=== PATIENT | male | born 1960 | race Caucasian/White ===

== ENCOUNTER 2016-07-19 08:53 | Day surgery (SDC) | payer MEDICARE, OTHER ==
[~2016-07-19] VITALS: Ht 180.3 cm; Wt 59.1 kg
[2016-07-19] VITALS (8 sets, daily range): BP systolic 104–138; BP diastolic 65–86; PULSE 61–69; RESP 16–20; TEMP 97.7–98.6; O2SAT 94–99
[2016-07-19] MEDS ORDERED: FAMO20TA2 G-TUBE (09:29)
[2016-07-19] MEDS ORDERED: LORA-373 G-TUBE (09:29)
[2016-07-19] MEDS ORDERED: REGL10TA5 G-TUBE (09:29)
[2016-07-19] MEDS ORDERED: APLI5INJ2 SQ (09:29)
[2016-07-19] MEDS ORDERED: DOXY1CAP91 G-TUBE (09:29)
[2016-07-19] MEDS ORDERED: HUMALOG SQ (09:29)
[2016-07-19] MEDS ORDERED: fentaNYL CITRATE 250 MCG/5 ML AMP ONE (10:41)
[2016-07-19] MEDS ORDERED: MIDAZOLAM HCL 5 MG/5 ML VIAL ONE (10:41)
[2016-07-19] MEDS ORDERED: IOHEXOL 350 MG/ML 50 ML BTL (for RAD DIAG) J-TUBE ONE (11:47)
--- NOTE | 2016-07-19 12:47 | PD.RAD ---
Post Procedure Progress Note Pre Procedure Diagnosis: (1) Feeding tube obstruction Post Procedure Diagnosis: (1) Feeding tube obstruction Procedure Date: Jul 19, 2016 Supervising Radiologist: Chas Holguin JR Proceduralist/Assist: Antolin Simmons, RT(R), Siri Rico RT(R)(CV) Anesthesia: Conscious Sedation Plan of Activity Patient to Unit: ROPU Patient Condition: Good See PACS Report for procedural detail/treatment Feeding Tube Gastro/Jejunostomy Exchange Cymraes: 22 Findings: Original GJ tube coiled in stomach and kinked. Removed and replaced with new 22F GJ tube. Tip in proximal jejunum. Jr. Ezio,Chas Watts MD Jul 19, 2016 12:47
--- NOTE | 2016-07-19 16:32 | RADRPT ---
EXAM DATE/TIME: 07/19/2016 10:45 [facility] COMPARISON: No previous studies available for comparison. INDICATIONS : Patient presents with non functioning gastrojejunal tube in need of replacement for nutrition. MEDICAL HISTORY : PNA Dysphagia Aspiration DM ETOH Aphasia GERD Hemiplegia Smoker SURGICAL HISTORY : PEG tube Femur fx ENCOUNTER: Initial ACUITY: 2 days PAIN SCORE: 0/10 LOCATION: unresponsive. FLUORO TIME: 5.1 minutes IMAGE SERIES: 2 SEDATION TIME: 30 minutes CONTRAST: 30 cc Omnipaque (iohexol) 350 MEDICATION(S): 1.) 3 mg midazolam (Versed) IV 2.) 125 mcg Fentanyl (Sublimaze) IV DEVICE(S): 1.) 22 Stateless Transgastric tube PROCEDURE : 1. Fluoroscopically guided gastrojejunostomy tube exchange. 2. Conscious sedation with continuous EKG and oximetry monitoring. The risks, benefits and alternatives to the procedure were explained and verbal and written consent w as obtained. The site was prepped in sterile fashion. Full sterile technique was used, including ca p, mask, sterile gloves and gown and a large sterile sheet. Hand hygiene and 2% chlorhexidine and/or betadine/alcohol prep was utilized per protocol for cutaneous antisepsis. The skin and subcutaneous tissues were infiltrated with local anesthetic solution. Fluoroscopic evaluation shows existing GJ tube coiled within the stomach. The jejunal tube is kinked within the stomach. This GJ tube was removed. With fluoroscopic guidance a guidewire was passed throu gh the dermatotomy and a combination of a Berenstein catheter and Glidewire was utilized to access th e jejunum. A fresh tube was placed over the guidewire. The balloon was inflated with appropriate vol ume of saline. Injection of positive contrast demonstrates good position of the gastric and jejunal lumens of the tube. Conscious sedation was performed with the prescribed dosages and duration as above in the presence of an independent trained radiology nurse to assist in the monitoring of the patient. EKG and oximetry remained stable throughout the procedure. The patient tolerated the procedure well and there were n o complications. The patient was sent to post anesthesia recovery in stable condition. CONCLUSION: Uncomplicated gastrojejunostomy tube exchange as above. Chas Holguin Jr., MD on July 19, 2016 at 16:28 Board Certified Radiologist. This report was verified electronically.
== END 2016-07-19 13:35 | disposition home or self-care (01) ==
LOC: HROP 08:53 → HRIP 08:56 → HROP 13:35
PROVIDERS: ATTEND Family Medicine
DX: K94.23 Gastrostomy malfunction (principal); K21.9 Gastro-esophageal reflux disease without esophagitis; E11.9 Type 2 diabetes mellitus without complications
CPT/HCPCS: 49452; 99152; 99153; C1769; C1874; C1887; C1894; J2250; J3010; Q9967

== ENCOUNTER 2016-09-04 10:13 | Day surgery (SDC) | payer MEDICARE, OTHER ==
[~2016-09-04] VITALS: Ht 180.3 cm; Wt 72.7 kg
[~2016-09-04 10:13] MED LIST: APLI5INJ2 SQ; DOXY1CAP91 G-TUBE; FAMO20TA2 G-TUBE; HUMALOG SQ; LORA-373 G-TUBE; REGL10TA5 G-TUBE
[2016-09-04 10:15] VITALS: BP 154/93; PULSE 67; RESP 18; RESP 20; TEMP 97.3; O2SAT 91
[2016-09-04] MEDS ORDERED: POTA10SO12 PO (10:35)
[2016-09-04] MEDS ORDERED: HYDR-3516 PO (10:35)
[2016-09-04] MEDS ORDERED: MULT1TAB84 PO (10:35)
[2016-09-04] MEDS ORDERED: LEXA10TA PO (10:35)
[2016-09-04] MEDS ORDERED: SODIUM CHLORIDE 0.9% 1000 ML IV SCH (10:45)
[2016-09-04 16:00] VITALS: BP 174/92; PULSE 81; RESP 16; TEMP 97.3; O2SAT 93
--- NOTE | 2016-09-04 16:14 | PD.RAD ---
Post Procedure Progress Note Pre Procedure Diagnosis: (1) Feeding tube obstruction Post Procedure Diagnosis: (1) Feeding tube obstruction Procedure Date: September 04, 2016 Supervising Radiologist: Yvon Meyers Anesthesia: Local Plan of Activity Patient to Unit: ROPU Patient Condition: Poor Additional Comments: G/J tube replaced through the existing tract New tube in good position OK for use See PACS Report for procedural detail/treatment Yvon Meyers MD September 04, 2016 16:14
[2016-09-04 16:15] VITALS: BP 181/101; PULSE 83; RESP 16; O2SAT 93
[2016-09-04] MEDS ORDERED: IOHEXOL 350 MG/ML 50 ML BTL (for RAD DIAG) G-TUBE ONE (16:19)
[2016-09-04 16:30] VITALS: BP 179/89; PULSE 88; RESP 16; O2SAT 93
[2016-09-04 17:00] VITALS: BP 185/86; PULSE 85; RESP 16; O2SAT 93
--- NOTE | 2016-09-04 17:07 | RADRPT ---
EXAM DATE/TIME: 09/04/2016 15:59 [facility] COMPARISON: CHANGE OF GJ-TUBE CATHETER, July 19, 2016, 10:45. INDICATIONS : Patient with history of dysphagia in need of GJ tube placement. MEDICAL HISTORY : Diabetes, GERD, Aphasia, Dysphagia SURGICAL HISTORY : GJ tube placement ENCOUNTER: Subsequent ACUITY: 1 day PAIN SCORE: 0/10 FLUORO TIME: 5 minutes IMAGE SERIES: 2 CONTRAST: 15 cc Omnipaque (iohexol) 350 DEVICE(S): 1.) 22 Fr Transgastric tube PROCEDURE : 1. Fluoroscopically guided gastrojejunostomy tube placement. 2. Conscious sedation with continuous EKG and oximetry monitoring. The risks, benefits and alternatives to the procedure were explained and verbal and written consent w as obtained. The site was prepped in sterile fashion. Full sterile technique was used, including ca p, mask, sterile gloves and gown and a large sterile sheet. Hand hygiene and 2% chlorhexidine and/or betadine/alcohol prep was utilized per protocol for cutaneous antisepsis. The skin and subcutaneous tissues were infiltrated with local anesthetic solution. The patient's G./J-tube had fallen out approximately 48 hours prior. The existing tract was cannulate d with a 4 Solomon Islander dilator. Injection of contrast demonstrated track down to the stomach. A 0.035 angl e Glidewire was manipulated through the track and into the stomach. The wire was manipulated out the stomach into the duodenum using a Berenstein catheter. The 0.035 wire was advanced into the small lauren wel. The tract was dilated. The gastrojejunostomy tube was introduced through a peel-away sheath. T he position was confirmed with an injection of contrast in both the gastric and jejunal lumens. A trained radiology nurse monitored the patient. EKG and oximetry remained stable throughout the pro cedure. The patient tolerated the procedure well and there were no complications. The patient was s ent to post anesthesia recovery in stable condition. CONCLUSION: Uncomplicated gastrojejunostomy tube placement through an existing tract as above. Yvon Meyers MD on September 04, 2016 at 17:04 Board Certified Radiologist. This report was verified electronically.
== END 2016-09-04 17:00 ==
LOC: HROP 10:13 → HRIP 10:14 → HROP 17:00
PROVIDERS: ATTEND Family Medicine
DX: K94.29 Other complications of gastrostomy (principal); R13.10 Dysphagia, unspecified; K21.9 Gastro-esophageal reflux disease without esophagitis; E11.9 Type 2 diabetes mellitus without complications; G81.90 Hemiplegia, unspecified affecting unspecified side; F17.200 Nicotine dependence, unspecified, uncomplicated
CPT/HCPCS: 49440; 49446; C1769; C1874; C1887; Q9967

== ENCOUNTER 2016-10-02 01:58 | Emergency (ER) | payer MEDICARE ==
[~2016-10-02] VITALS: Ht 160 cm; Wt 56.0 kg
[~2016-10-02 01:58] MED LIST changes: -DOXY1CAP91 G-TUBE; +HYDR-3516 PO; +LEXA10TA PO; +MULT1TAB84 PO; +POTA10SO12 PO; -REGL10TA5 G-TUBE
[2016-10-02 02:11] VITALS: BP 144/60; PULSE 71; RESP 18; TEMP 98.2; O2SAT 98
[2016-10-02] MEDS ORDERED: REGL10TA5 G-TUBE (02:25)
[2016-10-02] MEDS ORDERED: HYDR-3516 PO (02:25)
[2016-10-02] MEDS ORDERED: DIFFCHW PO (02:25)
[2016-10-02] MEDS ORDERED: LEXA10TA PO (02:25)
[2016-10-02] MEDS ORDERED: LORA-373 G-TUBE (02:25)
[2016-10-02] MEDS ORDERED: IPRASOL INH (02:25)
[2016-10-02] MEDS ORDERED: POTA10SO12 G-TUBE (02:25)
[2016-10-02] MEDS ORDERED: MULT1TAB46 G-TUBE (02:25)
[2016-10-02] MEDS ORDERED: TYLE325T G-TUBE (02:25)
[2016-10-02] MEDS ORDERED: ABH (02:25)
[2016-10-02 02:57] LABS: AUTOMATED NEUTROPHIL # 5.2 TH/MM3 (1.8-7.7); BASOPHIL # 0.1 TH/MM3 (0-0.2); BASOPHIL % 0.7 % (0.0-2.0); EOSINOPHIL # 0.3 TH/MM3 (0-0.4); EOSINOPHIL % 4.2 % (0.0-4.0); HEMATOCRIT 39.1 % (39.0-51.0); HEMO FLAGS DIFF FINAL; LYMPH % 16.4 % (9.0-44.0); LYMPHOCYTE # 1.2 TH/MM3 (1.0-4.8); MEAN CELL VOLUME 92.5 FL (80.0-100.0); MEAN CORPUSCULAR HEMOGLOBIN 30.8 PG (27.0-34.0); MEAN CORPUSCULAR HGB CONC 33.3 % (32.0-36.0); MONO % 8.8 % (0.0-8.0); NEUT % 69.9 % (16.0-70.0); PLATELET COUNT 234 TH/MM3 (150-450); RED BLOOD COUNT 4.22 MIL/MM3 (4.50-5.90); RED CELL DISTRIBUTION WIDTH 15.7 % (11.6-17.2); WHITE BLOOD COUNT 7.4 TH/MM3 (4.0-11.0)
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
[2016-10-02 03:20] LABS: ALT (GPT) 31 U/L (12-78); ANION GAP 6 MEQ/L (5-15); AST (GOT) 63 U/L (15-37); BICARBONATE 29.8 MEQ/L (21.0-32.0); BLOOD UREA NITROGEN 15 MG/DL (7-18); CHLORIDE 100 MEQ/L (98-107); GLOMERULAR FILTRATION RATE 79 ML/MIN (>89); POTASSIUM 3.9 MEQ/L (3.5-5.1); SODIUM (NA) 136 MEQ/L (136-145)
[2016-10-02 03:21] LABS: ALKALINE PHOSPHATASE 125 U/L (45-117); TOTAL BILIRUBIN ADULT 0.6 MG/DL (0.2-1.0)
[2016-10-02 07:23] VITALS: BP 153/108; PULSE 61; RESP 16; O2SAT 98
[2016-10-02] MEDS ORDERED: [UNRECOGNIZED DRUG - CODE] (08:27)
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
[2016-10-02 11:37] VITALS: BP 132/88; PULSE 66; RESP 18
== END 2016-10-02 11:24 | disposition home or self-care (01) ==
LOC: NEPC 01:58 → NEPB 11:24
DX: F43.24 Adjustment disorder with disturbance of conduct (principal)
CPT/HCPCS: 80053; 85025; 96372

== ENCOUNTER 2016-10-11 19:09 | Emergency (ER) | payer MEDICARE, OTHER ==
[~2016-10-11] VITALS: Ht 165.1 cm; Wt 65.0 kg
[~2016-10-11 19:09] MED LIST changes: +ABH; -APLI5INJ2 SQ; +DIFFCHW PO; +IPRASOL INH; +MULT1TAB46 G-TUBE; -MULT1TAB84 PO; +POTA10SO12 G-TUBE; -POTA10SO12 PO; +REGL10TA5 G-TUBE; +TYLE325T G-TUBE; +[UNRECOGNIZED DRUG - CODE]
[2016-10-11 23:32] LABS: AUTOMATED NEUTROPHIL # 3.1 TH/MM3 (1.8-7.7); BASOPHIL % 0.6 % (0.0-2.0); EOSINOPHIL # 0.3 TH/MM3 (0-0.4); EOSINOPHIL % 5.4 % (0.0-4.0); HEMATOCRIT 36.5 % (39.0-51.0); HEMO FLAGS DIFF FINAL; LYMPH % 26.7 % (9.0-44.0); LYMPHOCYTE # 1.5 TH/MM3 (1.0-4.8); MEAN CELL VOLUME 91.4 FL (80.0-100.0); MEAN CORPUSCULAR HEMOGLOBIN 30.8 PG (27.0-34.0); MEAN CORPUSCULAR HGB CONC 33.7 % (32.0-36.0); MONO % 11.2 % (0.0-8.0); NEUT % 56.1 % (16.0-70.0); PLATELET COUNT 233 TH/MM3 (150-450); RED CELL DISTRIBUTION WIDTH 15.6 % (11.6-17.2); WHITE BLOOD COUNT 5.5 TH/MM3 (4.0-11.0)
[2016-10-11 23:48] LABS: ALKALINE PHOSPHATASE 123 U/L (45-117); TOTAL BILIRUBIN ADULT 0.3 MG/DL (0.2-1.0)
[2016-10-11 23:51] LABS: ALT (GPT) 26 U/L (12-78); ANION GAP 8 MEQ/L (5-15); AST (GOT) 37 U/L (15-37); BICARBONATE 31.5 MEQ/L (21.0-32.0); BLOOD UREA NITROGEN 14 MG/DL (7-18); CHLORIDE 100 MEQ/L (98-107); GLOMERULAR FILTRATION RATE 78 ML/MIN (>89); POTASSIUM 3.3 MEQ/L (3.5-5.1); SODIUM (NA) 139 MEQ/L (136-145)
[2016-10-11 23:58] LABS: ACETAMINOPHEN LESS THAN 2.0 MCG/ML (10.0-30.0)
[2016-10-12 00:54] VITALS: BP 149/88; PULSE 59; RESP 16; O2SAT 96
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
[2016-10-12 05:30] VITALS: BP 148/72; PULSE 62; RESP 20; O2SAT 96
[2016-10-12 07:14] VITALS: BP 144/91; PULSE 89; RESP 18; O2SAT 97
[2016-10-12 07:36] LABS: AMPHETAMINE, URINE NEG (NEG); BARBITURATES, URINE NEG (NEG); COCAINE, URINE NEG (NEG)
[2016-10-12 10:36] VITALS: BP 140/78; PULSE 63; RESP 18; O2SAT 97
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
[2016-10-12 13:45] VITALS: BP 143/87; TEMP 97.8
== END 2016-10-12 15:43 ==
LOC: NEPE 19:09
DX: F39 Unspecified mood [affective] disorder (principal); F43.24 Adjustment disorder with disturbance of conduct; E11.9 Type 2 diabetes mellitus without complications; Z72.0 Tobacco use; Z79.4 Long term (current) use of insulin; Z86.79 Personal history of other diseases of the circulatory system; Z87.19 Personal history of other diseases of the digestive system; Z87.448 Personal history of other diseases of urinary system; Z87.39 Personal history of other diseases of the musculoskeletal system and connective tissue; Z86.69 Personal history of other diseases of the nervous system and sense organs
CPT/HCPCS: 80053; 80307; 85025; 99284